=== PATIENT | female | born 1970 | race Caucasian/White ===

== ENCOUNTER 2018-11-01 09:37 | Outpatient (CLI) | payer BC, SELFPAY ==
--- NOTE | 2018-11-01 09:51 | DI.MAMMO_ITS ---
SYMPTOMS/DIAGNOSIS: SCREENING, Z12.31 MAMMOGRAM: Mammograms were interpreted according to the usual protocol including computer analysis with CAD system, tomosynthesis and C view imaging. Comparison with prior examinations. Breast density B. No suspicious masses or microcalcifications are seen. There is a question of a partially obscured nodule in the outer central left breast on the left craniocaudad view. This area should be further evaluated with a spot compression view and ultrasound. IMPRESSION: Additional views of the left breast as described above. Category 0. MQSA ASSESSMENT OF FINDINGS: Incomplete: Needs additional imaging evaluation. Category 0. Patient will receive a letter notifying them of these results. BI-RADS category B. There are scattered areas of fibroglandular density.
== END 2018-11-01 09:57 ==
PROVIDERS: PCP Family Medicine; Visit Provider Nurse Practitioner Family
DX: Z12.31 Encounter for screening mammogram for malignant neoplasm of breast (principal); R92.8 Other abnormal and inconclusive findings on diagnostic imaging of breast
CPT/HCPCS: 77063; 77067

== ENCOUNTER 2018-11-08 00:59 | Outpatient (CLI) | payer BC, SELFPAY ==
--- NOTE | 2018-11-08 02:45 | DI.COMBO_ITS ---
SYMPTOM/DIAGNOSIS: F/U MAMMO AND SPOTS ADDITIONAL VIEWS LEFT BREAST, LEFT BREAST ULTRASOUND: Additional images are interpreted according to the usual protocol including tomosynthesis and 2D imaging. CC spot compression views performed of nodularity. The margins appear circumscribed on the spot compression view. There is dense breast tissuein the upper outer quadrant. A cystic area is seen in the 1 oclock position 4 cm from the nipple measuring 7mm An additional 5 mm cyst is seen in the medial breast 3cm from the nipple. No suspicious masses are identified. IMPRESSION: Category 3, probably benign mammogram.. Six month follow up is recommended. Left breast ultrasound with benign findings. MQSA ASSESSMENT OF FINDINGS: Probably benign. Six month follow-up recommended. Category 3. Patient will receive a letter notifying them of these results. BREAST DENSITY CATEGORY B
== END 2018-11-08 01:19 ==
PROVIDERS: PCP Family Medicine; Visit Provider Nurse Practitioner Family
DX: Z12.31 Encounter for screening mammogram for malignant neoplasm of breast (principal); R92.8 Other abnormal and inconclusive findings on diagnostic imaging of breast; N60.12 Diffuse cystic mastopathy of left breast
CPT/HCPCS: 76642; 77063; 77067

== ENCOUNTER 2019-01-07 07:01 | Outpatient (CLI) | payer BC, SELFPAY ==
[2019-01-07 08:56] LABS: HCT 39.3 % (36.0-46.0); HGB 12.8 g/dL (12.0-15.5); Mean Corp. HGB Concentration 32.6 g/dL (32.0-36.0); Mean Corpuscular Hemoglobin 29.3 pg (27.0-33.0); Mean Corpuscular Volume 89.9 fL (80-95); Mean Platelet Volume 10.1 fL (8.0-11.0); Platelet Count 240 x1000/uL (130-400); RBC 4.37 m/cumm (4.00-5.20); RBC Distribution Width 12.8 % (11.7-14.6); White Blood Cell Count 5.22 k/cumm (4.4-10.8)
[2019-01-07 09:06] LABS: Glucose 94 mg/dL (70-100)
[2019-01-07 09:10] LABS: Hemoglobin A1C 5.4 % (4.5-6.2)
[2019-01-07 09:14] LABS: Iron 112 ug/dL (50-175)
[2019-01-07 09:39] LABS: Vitamin D 25 Total 24.3 ng/ml (30-100)
[2019-01-07 09:45] LABS: Cholesterol 209 mg/dL (50-200); HDL Cholesterol 87 mg/dL (40-60); LDL CHOLESTEROL 99 mg/dL (<100); TSH (W/Ref FT4) 0.91 uIU/mL (0.358-3.74); Triglyceride 74 mg/dL (30-150); Vitamin B12 378 pg/mL (193-986)
== END 2019-01-07 07:21 ==
PROVIDERS: Nurse Practitioner Family; PCP Family Medicine; Visit Provider Family Medicine
DX: G47.30 Sleep apnea, unspecified (principal); R53.83 Other fatigue; Z00.00 Encounter for general adult medical examination without abnormal findings; Z13.1 Encounter for screening for diabetes mellitus
CPT/HCPCS: 36415; 80061; 82306; 82947; 83721; 85027; 82607; 83036; 83540; 84443

== ENCOUNTER 2019-11-09 01:20 | Outpatient (CLI) | payer BC, SELFPAY ==
--- NOTE | 2019-11-09 13:15 | DI.MAMMO_ITS ---
EXAM: MG MAMMO SCREENING CLINICAL HISTORY: screening. TECHNIQUE: Full field digital CC and MLO mammographic images were obtained with 3D tomosynthesis and utilizing computer aided detection (CAD). COMPARISON: . 2010 through 2018 FINDINGS: Breast Density - Category B - Scattered areas of fibroglandular density Masses/Architectural Distortion: None seen. Microcalcifications: No suspicious pleomorphic-type calcifications are seen. Skin Thickening/Nipple Retraction: None. Axilla: Unremarkable. IMPRESSION: 1. BI-RADS category 1, negative. No significant interval change with no specific features of maligna ncy noted. 2. Unless there is more urgent need, screening mammography is recommended, as per [employer] guidelines. A negative radiographic report should not delay biopsy if a dominant or clinically suspicious mass is present. Up to ten percent of cancers are not identified on mammography. A negative report may reinforce clinical impression. Adenosis and dense breasts may obscure an underlying neoplasm. False positive reports average 6 to 10%. Patient will receive a letter notifying them of these results.
== END 2019-11-09 01:40 ==
PROVIDERS: PCP Family Medicine; Visit Provider Nurse Practitioner Family
DX: Z12.31 Encounter for screening mammogram for malignant neoplasm of breast (principal)
CPT/HCPCS: 77063; 77067

== ENCOUNTER 2020-11-12 09:29 | Outpatient (CLI) | payer BC, SELFPAY ==
[2020-11-13 12:36] LABS: COVID-19 RT-PCR UVMMC Result Negative (Negative)
== END 2020-11-12 09:49 ==
PROVIDERS: PCP Family Medicine; Visit Provider Family Medicine
DX: Z11.52 Encounter for screening for COVID-19 (principal)
CPT/HCPCS: U0003

== ENCOUNTER 2020-11-20 02:00 | Outpatient (CLI) | payer BC, SELFPAY ==
[2020-11-21 15:21] LABS: COVID-19 RT-PCR UVMMC Result Negative (Negative)
== END 2020-11-20 02:01 | disposition home or self-care (01) ==
LOC: LBO 02:00
PROVIDERS: PCP Family Medicine; Visit Provider Surgery
DX: Z20.822 Contact with and (suspected) exposure to COVID-19 (principal); Z01.818 Encounter for other preprocedural examination
CPT/HCPCS: U0003

== ENCOUNTER 2020-11-23 06:21 | Day surgery (SDC) | payer BC, SELFPAY ==
[2020-11-23 06:33] VITALS: BP 113/74; PULSE 60; RESP 16; TEMP 36.5; O2SAT 99
[2020-11-23] MEDS: Lactated Ringers 1,000 ML 80 ML IV (06:54)
--- NOTE | 2020-11-23 08:13 | W.COLOREPORT ---
Date of service: 11/23/20 Time of Service: 08:13 Colonoscopy Report Date of procedure: 11/23/20 Pre-op diagnosis general: crc screen Post-op diagnosis procedure note: other (noraml ) Prep: Miralax/Dulcolax Retraction Time: 8mins Procedure Description: After informed consent was obtained the patient was taken to the procedure room and placed in a left decubitous position. Monitors were applied and a time out was done. The patients name, date of , procedure, allergies to medications and metal in their body was reviewed. The patient was then sedated. Once sedated and comfortable a rectal exam was done. External exam: External hemorrhoidal tags- small. internal exam revealed a normal sphincter tone and no palpable masses. The scope was then introduced and retrofelexed. No internal hemorrhoids were identified. The scope was then advanced to the cecum without difficulty. The TI and appendiceal orifice were identified. The prep was good. The scope was then slowly retracted over 8 minutes back into the rectum. There are no polyps, AVMs, or diverticula visualized. The mucosa is pink and healthy. The scope was removed and the patient was woken up and taken back to Same day surgery in stable condition. The patient tolerated the procedure well and there were no immediate complications. Follow up: The patient should follow up in 10 years unless they develop changes in bowel habits or other new gastrointestinal complaints.
--- NOTE | 2020-11-23 08:15 | W.PM.DSUDISC ---
Discharge Plan Disposition Patient Disposition: HOME Condition: Good Discharge Details Reason For Visit: colon scope Attending Provider: Anel Harman Primary Care Provider: Mirna Whitt Home Meds and New Rx's Prescriptions: Continued acyclovir 200 mg capsule 200 mg PO Q4H Qty: 25 RF: 5 fluoxetine [Prozac] 20 mg capsule 20 mg PO DAILY RF: 0 Discontinued polyethylene glycol 3350 17 gram/dose powder 238 g PO ONCE Qty: 238 RF: 0 bisacodyl [Dulcolax (bisacodyl)] 5 mg tablet,delayed release (DR/EC) 5 mg PO ONCE Qty: 4 RF: 0 Discharge Instructions Additional Instructions: Findings:normal Follow up:repeat in 10 yrs time Please call if you develop: fevers >101.5 Nausea or Vomiting Abdominal pain that is not transient DAY SURGERY UNIT POST COLONOSCOPY INSTRUCTIONS 1. Because there will be medication in your system for the next 24 hours, you may feel a little sleepy. Your coordination will be affected. Therefore: a. Do not drive or operate dangerous equipment for 24 hours. b. Do not drink alcohol beverages for 24 hours (not even beer). c. Plan to go home and rest for the day. 2. Generally there are no restrictions on your activity after a day or so has gone by, but you may feel a bit fatigued for a few days. 3 After you arrive home you may have a light meal and return to a normal diet as you can tolerate it without feeling sick to your stomach. 4. After surgery, you may feel pain or discomfort. This should be only transient, but if it persists please contact your doctor. 5. If there are any questions regarding the findings of your procedure, please feel free to contact your doctor. 6. If you are unable to contact your doctor with a problem, contact the hospital at [phone]. 7. Continue all your regular medications unless directed otherwise. I understand the above instructions and have no questions. Signature of Patient or Responsible Adult Escort Date/Time Name of Responsible Adult Escort Signature of Nurse Date/Time Activity:: No lifting over 20 pounds or strenuous activity x24 hours Diet:: Small light meals x24 hours Discharge Orders Discharge Orders: Discharge Order (Routine); Ordered 11/23/20 Ordered By: Anel Harman DS: Diagnosis Discharge Diagnosis (1) External hemorrhoid: Status: Acute
[2020-11-23 08:33] VITALS: BP 104/62; PULSE 55; RESP 16; TEMP 36.5; O2SAT 99
== END 2020-11-23 08:55 | disposition home or self-care (01) ==
PROVIDERS: PCP Family Medicine; Visit Provider Surgery
PROC: 0DJD8ZZ Inspection of Lower Intestinal Tract, Via Natural or Artificial Opening Endoscopic (ICD-10-PCS; CPT 45378; principal; 2020-11-23 07:30)
DX: Z12.11 Encounter for screening for malignant neoplasm of colon (principal); K64.4 Residual hemorrhoidal skin tags
CPT/HCPCS: 45378; 81025; J2001

== ENCOUNTER 2021-01-10 14:10 | Outpatient (CLI) | payer BC, SELFPAY ==
--- NOTE | 2021-01-10 | DI.RAD_ITS ---
EXAM: XR HIP RT COMPLETE AP PELVIS CLINICAL HISTORY: PAIN IN RT HIP, M25.551. TECHNIQUE: 2D digital imaging was performed. COMPARISON: No exams were available for comparison FINDINGS: There is no evidence of pelvic or hip fracture. Minimal degenerative changes in the hips. 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 Bone density is normal. No osseous lesions. IMPRESSION: DATA REPOSITORY: RADIATION DOSE DELIVERED:
== END 2021-01-10 14:30 ==
PROVIDERS: PCP Family Medicine; Visit Provider Family Medicine
DX: M25.551 Pain in right hip (principal)
CPT/HCPCS: 73502